=== PATIENT | female | born 1960 | race Caucasian/White ===

== ENCOUNTER 2021-01-24 21:58 | Emergency (ER) | payer SELFPAY ==
[~2021-01-24] VITALS: Ht 157.5 cm; Wt 91.0 kg
[2021-01-25] MEDS ORDERED: DIPHENHYDRAMINE 50MG/ML VIAL IV ONE
[2021-01-25] MEDS ORDERED: METOCLOPRAMIDE HCL 10MG/2ML VIAL IV ONE
[2021-01-25 00:22] LABS: CHLORIDE 108 mEq/L (98-107)
[2021-01-25 01:16] LABS: BASOPHILS % 0.7 % (0.0-2.0); EOSINOPHILS % 2.4 % (0.0-5.0); HEMATOCRIT. 45.9 % (36.0-48.0); HEMOGLOBIN. 15.6 g/dL (12.0-16.0); LYMPHOCYTES % 29.9 % (20.0-50.0); MEAN CORPUSCULAR HEMOGLOBIN 32.1 pg (28.0-32.0); MEAN CORPUSCULAR VOLUME 94.5 fL (81.0-99.0); MEAN PLATELET VOLUME 9.6 fl (7.4-10.4); MONOCYTES % 7.2 % (2.0-8.0); NEUTROPHILS % 59.8 % (40.0-76.0); RED CELL DISTRIBUTION WIDTH 13.7 % (11.6-14.6)
[2021-01-25 01:18] LABS: RED BLOOD CELL COUNT 4.39 mill/uL (4.2-5.4)
[2021-01-25 01:19] LABS: PLATELET 397 x1000/uL (130-400)
[2021-01-25] MEDS ORDERED: MECL-217 MT (03:19)
[2021-01-25 03:54] VITALS: BP 152/77
== END 2021-01-25 03:55 | disposition home or self-care (01) ==
LOC: ER 21:58
DX: R51.9 Headache, unspecified (principal); R42 Dizziness and giddiness; I10 Essential (primary) hypertension; E11.9 Type 2 diabetes mellitus without complications
CPT/HCPCS: 36415; 70450; 71045; 80053; 84484; 85025; 93005; 96374; 96375; 99285; J1200; J2765

== ENCOUNTER 2021-04-27 08:16 | Emergency (ER) | payer OTHER, MEDICAID ==
[~2021-04-27] VITALS: Ht 157.5 cm; Wt 100.0 kg
[~2021-04-27 08:16] MED LIST: MECL-217 MT
[2021-04-27] MEDS ORDERED: NITROGLYCERIN OINT 1GM/INCH UDPKT TD ONE (08:45)
[2021-04-27] MEDS ORDERED: ASPIRIN 81MG TABLET PO ONE (08:45)
[2021-04-27 09:14] LABS: EOSINOPHILS % 3.3 % (0.0-5.0); HEMATOCRIT. 45.1 % (36.0-48.0); HEMOGLOBIN. 15.1 g/dL (12.0-16.0); LYMPHOCYTES % 33.9 % (20.0-50.0); MEAN CORPUSCULAR HEMOGLOBIN 31.3 pg (28.0-32.0); MEAN CORPUSCULAR VOLUME 93.9 fL (81.0-99.0); MEAN PLATELET VOLUME 8.1 fl (7.4-10.4); MONOCYTES % 7.7 % (2.0-8.0); NEUTROPHILS % 54.1 % (40.0-76.0); PLATELET 358 x1000/uL (130-400); RED BLOOD CELL COUNT 4.81 mill/uL (4.2-5.4)
[2021-04-27 09:20] LABS: CHLORIDE 107 mEq/L (98-107)
[2021-04-27 12:14] VITALS: BP 105/63
== END 2021-04-27 12:48 | disposition short-term general hospital (02) ==
LOC: ER 08:16
DX: R07.89 Other chest pain (principal); I10 Essential (primary) hypertension; E78.00 Pure hypercholesterolemia, unspecified; E11.9 Type 2 diabetes mellitus without complications; Z98.890 Other specified postprocedural states
CPT/HCPCS: 36415; 71045; 80053; 82962; 83880; 84484; 85025; 93005; 99285; Z7610